=== PATIENT | male | born 2000 | race African-American/Black ===

== ENCOUNTER 2023-06-19 21:03 | Emergency (ER) | payer OTHER ==
[~2023-06-19] VITALS: Ht 165.1 cm; Wt 81.6 kg
[2023-06-19 21:03] VITALS: TEMP 98.1
[2023-06-19 22:00] VITALS: BP 163/101; O2SAT 98
== END 2023-06-19 22:14 ==
LOC: ER 21:08
DX: F19.10 Other psychoactive substance abuse, uncomplicated (principal)